=== PATIENT | female | born 1945 | race Caucasian/White ===

== ENCOUNTER 2017-07-14 15:06 | Outpatient (CLI) | payer MEDICARE ==
--- NOTE | 2017-07-14 16:17 | RAD ---
TWO VIEWS OF THE CHEST : 07/14/17 COMPARISON: None. HISTORY: Chest pain and shortness of breath. FINDINGS: Two views of the chest shows normal sized cardiomediastinal silhouette. There is opacity in the right upper lobe which has a linear appearance along the periphery and may represent an area of scarring. An infiltrate is also a possibility. No pleural effusion is seen. IMPRESSION: Right upper lobe infiltrate versus scarring. POS: [facility]
== END 2017-07-14 15:07 | disposition home or self-care (01) ==
LOC: NAV RAD 15:06
PROVIDERS: ATTEND Internal Medicine Pulmonary Disease
DX: J44.9 Chronic obstructive pulmonary disease, unspecified (principal)
CPT/HCPCS: 71046